=== PATIENT | male | born 1990 | race Caucasian/White ===

== ENCOUNTER 2017-08-08 06:32 | Emergency (ER) | payer MEDICAID ==
[~2017-08-08] VITALS: Ht 172.7 cm; Wt 72.6 kg
[~2017-08-08 06:32] MED LIST: ADDERALL20 MG PO; FLEXERIL10 MG PO; KEFLEX500 MG PO; Lotrimin 1%15 GM T; MEDROL DOSEPAK4 MG PO; MOTRIN600 MG PO; NAPROSYN500 MG PO
== END 2017-08-08 07:20 | disposition home or self-care (01) ==
LOC: ED 06:32
DX: S63.591A Other specified sprain of right wrist, initial encounter (principal); W01.0XXA Fall on same level from slipping, tripping and stumbling without subsequent striking against object, initial encounter; Y93.89 Activity, other specified; Y92.69 Other specified industrial and construction area as the place of occurrence of the external cause; Y99.9 Unspecified external cause status

== ENCOUNTER → 2022-08-17 | Outpatient (CLI) | payer MEDICARE, MEDICAID | END | disposition home or self-care (01) | LOC: RAD 09:52 | PROVIDERS: ATTEND Internal Medicine Nephrology | DX: M47.815 Spondylosis without myelopathy or radiculopathy, thoracolumbar region (principal) ==

== ENCOUNTER → 2023-05-02 | Outpatient (CLI) | payer OTHER, MEDICAID | END | disposition home or self-care (01) | LOC: US 04-05 10:00 | PROVIDERS: ATTEND Internal Medicine Nephrology | DX: K21.9 Gastro-esophageal reflux disease without esophagitis (principal); R11.0 Nausea ==

== ENCOUNTER 2024-03-19 20:53 | Emergency (ER) | payer OTHER, MEDICAID ==
[~2024-03-19] VITALS: Ht 182.8 cm; Wt 81.6 kg
[2024-03-19] MEDS ORDERED: AMOX-CLAV 875-1 EACH PO (21:08)
[2024-03-19] MEDS ORDERED: MELOXICAM15 MG PO (21:09)
[2024-03-19] MEDS ORDERED: Acetaminophen/Hydrocodone HP 10/325 PO ONE (21:10)
[2024-03-19] MEDS ORDERED: Amoxicillin/Clavulanate Pota 875 MG TAB PO ONE (21:10)
== END 2024-03-19 21:17 | disposition home or self-care (01) ==
LOC: ED 20:53
DX: K02.9 Dental caries, unspecified (principal); R22.0 Localized swelling, mass and lump, head; F90.9 Attention-deficit hyperactivity disorder, unspecified type

== ENCOUNTER 2025-02-10 23:37 | Emergency (ER) | payer OTHER, MEDICAID ==
[~2025-02-10] VITALS: Ht 180.3 cm; Wt 72.6 kg
[~2025-02-10 23:37] MED LIST changes: +AMOX-CLAV 875-1 EACH PO; +MELOXICAM15 MG PO
[2025-02-10] MEDS ORDERED: PENICILLIN V POTASSIUM 500 MG TAB PO ONE (23:50)
[2025-02-10] MEDS ORDERED: PENICILLIN VK500 MG PO (23:50)
[2025-02-10] MEDS ORDERED: Ondansetron Hydrochloride 4 MG TAB SL ONE (23:50)
[2025-02-10] MEDS ORDERED: Acetaminophen/Hydrocodone 5 MG/325 MG TABLET PO ONE (23:50)
== END 2025-02-11 00:01 | disposition home or self-care (01) ==
LOC: ED 23:37
DX: K02.9 Dental caries, unspecified (principal); K08.89 Other specified disorders of teeth and supporting structures; F90.9 Attention-deficit hyperactivity disorder, unspecified type